=== PATIENT | female | born 1945 | race Caucasian/White ===

== ENCOUNTER → 2018-05-06 | Outpatient (CLI) | payer MEDICARE, OTHER | LOC: COL.RAD 12:24 | DX: N28.1 Cyst of kidney, acquired (principal) ==

== ENCOUNTER 2019-02-15 20:51 | Emergency (ER) | payer MEDICARE, OTHER ==
[~2019-02-15] VITALS: Ht 162.6 cm; Wt 68.2 kg
[~2019-02-15 20:51] MED LIST: ATARAX 25MG25 MG/TAB PO; CELEXA 20MG20 MG/TAB PO; CEPHALEXIN500 M1 PO; DESYREL 100MG100 MG; DESYREL 50MG50 MG PO; LYRICA 75MG CAP75 MG PO; MAGNESIUM250 M1 PO; OMEGA-3 1000 MG1 CAP PO; OSCAL 500 TAB500 MG PO; PROAIR HFA0.09 MG/AC IH; SINGULAIR 110 MG/TAB PO; THE MEDICINE S200 M2 PO; ZOCOR 20MG20 MG PO
[2019-02-15 21:26] VITALS: BP 131/69; TEMP 97.8
[2019-02-15] MEDS ORDERED: NORCO 325 MG-51 TAB PO (23:06)
[2019-02-15 23:29] VITALS: PULSE 60
== END 2019-02-15 23:29 | disposition home or self-care (01) ==
LOC: COL.ER 20:51
DX: M23.92 Unspecified internal derangement of left knee (principal); X50.0XXA Overexertion from strenuous movement or load, initial encounter
CPT/HCPCS: L1846

== ENCOUNTER 2020-07-22 14:42 | Emergency (ER) | payer MEDICARE, OTHER ==
[~2020-07-22] VITALS: Ht 160 cm; Wt 72.7 kg
[~2020-07-22 14:42] MED LIST changes: +NORCO 325 MG-51 TAB PO
[2020-07-22 15:30] VITALS: TEMP 98
[2020-07-22 15:40] LABS: COLLECTION METHOD CLEAN CATCH
[2020-07-22 15:50] LABS: PH 6 (5-8); SQUAMOUS EPITHELIAL 0-2 /hpf; URINE APPEARANCE Cloudy; URINE BACTERIA Rare /hpf; URINE BILIRUBIN Negative (NEGATIVE); URINE BLOOD 2+ (NEGATIVE); URINE COLOR Yellow; URINE GLUCOSE Negative (NEGATIVE); URINE KETONE Negative (NEGATIVE); URINE LEUKOCYTE ESTERASE 3+ (NEGATIVE); URINE NITRATE Negative (NEGATIVE); URINE PROTEIN(semi-quant) Negative (NEGATIVE); URINE RBC 0-2 /hpf; URINE UROBILINOGEN Negative (NEGATIVE)
[2020-07-22] MEDS ORDERED: CEFTIN500 MG PO (16:19)
[2020-07-22 16:26] VITALS: BP 108/64; PULSE 62
== END 2020-07-22 16:28 | disposition home or self-care (01) ==
LOC: COL.ER 14:42
PROVIDERS: Physician Assistant
DX: N39.0 Urinary tract infection, site not specified (principal); J45.909 Unspecified asthma, uncomplicated

== ENCOUNTER → 2022-03-27 | Outpatient (CLI) | payer MEDICARE, OTHER ==
[~2022-03-27] MED LIST changes: +CEFTIN500 MG PO
== END ==
LOC: MC.RAD 07:03
DX: Z12.31 Encounter for screening mammogram for malignant neoplasm of breast (principal)

== ENCOUNTER → 2023-06-16 | Outpatient (CLI) | payer MEDICARE, OTHER | LOC: COL.RAD 10:55 | DX: N28.89 Other specified disorders of kidney and ureter (principal) ==